=== PATIENT | female | born 1950 | race Caucasian/White ===

== ENCOUNTER → 2017-02-26 | Outpatient (CLI) | payer MEDICARE ==
--- NOTE | 2017-02-26 12:12 | REPMRS ---
Patient History The patient states she had a clinical breast exam in 01/2017. Patient is postmenopausal. Family history of ovarian cancer in mother at age 77, pancreatic cancer in maternal aunt, and pancreatic cancer in maternal grandmother. Benign excisional biopsy of the left breast, 1972. Took hormonal contraceptives for 10 years. Digital Woman Screen Mammo: February 26, 2017 - Exam #: [id number] Bilateral CC and MLO view(s) were taken. Technologist: Georgia Travis, Technologist Prior study comparison: February 20, 2016, digital woman screen mammo performed at [facility]. February 20, 2015, bilateral digital mammo screening bilat, performed at [facility]. FINDINGS: There are scattered fibroglandular densities. There has been no change in the appearance of the mammogram from the prior studies. There is a mild amount of residual fibroglandular tissue which is fairly symmetric. There is no interval development of dominant mass, architectural distortion, or clustered microcalcification suggestive of malignancy. ASSESSMENT: BI-RADS/ACR category 1 mammogram. Negative. Recommendation Routine screening mammogram in 1 year (for women over age 40). This mammogram was interpreted with the aid of an FDA-approved computer-aided dectection system. Electronically Signed By: Irving Wynn MD 02/26/17 [id number]
== END ==
LOC: M WHC 10:13
PROVIDERS: ATTEND Nurse Practitioner Women's Health
DX: Z12.31 Encounter for screening mammogram for malignant neoplasm of breast (principal)

== ENCOUNTER → 2017-12-17 | Outpatient (REF) | payer MEDICARE ==
[2017-12-17 16:04] LABS: APPEARANCE, URINE CLOUDY (CLEAR); BACTERIA, URINE AUTO NEGATIVE (NEGATIVE); BILIRUBIN, URINE AUTO NEGATIVE (NEGATIVE); BLOOD, URINE BLOOD NEGATIVE (NEGATIVE); COLOR, URINE AMBER (YELLOW); GLUCOSE, URINE (UA) AUTO NEGATIVE (NEGATIVE); KETONE, URINE AUTO NEGATIVE (NEGATIVE); LEUKOCYTE ESTERASE, URINE AUTO TRACE (NEGATIVE); MUCUS, URINE SMALL (NEGATIVE); NITRITE, URINE AUTO NEGATIVE (NEGATIVE); PROTEIN, URINE AUTO NEGATIVE (NEGATIVE); RBC, URINE AUTO 0 /HPF (0-3); SPECIFIC GRAVITY URINE AUTO 1.013 (1.002-1.035); SQUAMOUS EPITHELIAL CELL UR AU 1 /HPF (0-6); UROBILINOGEN, URINE AUTO 0.2 mg/dL (0.0-2.0); WBC, URINE AUTO 0 /HPF (0-3)
[2017-12-17 16:17] LABS: ALBUMIN 4.1 GM/DL (3.2-5.2); ALBUMIN/GLOBULIN RATIO 1.21 (1.00-1.93); ALKALINE PHOSPHATASE 74 U/L (45-117); ALT/SGPT 40 U/L (12-78); AMYLASE 38 U/L (25-115); ANION GAP 6 MEQ/L (8-16); AST/SGOT 24 U/L (7-37); BILIRUBIN,TOTAL 0.7 MG/DL (0.2-1.0); BLOOD UREA NITROGEN 16 MG/DL (7-18); CALCIUM LEVEL 9.1 MG/DL (8.8-10.2); CARBON DIOXIDE LEVEL 29 MEQ/L (21-32); CHLORIDE LEVEL 107 MEQ/L (98-107); CREATININE FOR GFR 0.73 MG/DL (0.55-1.30); GLOMERULAR FILTRATION RATE > 60.0 (>45); GLUCOSE, FASTING 87 MG/DL (70-100); LIPASE 125 U/L (73-393); POTASSIUM SERUM 4.4 MEQ/L (3.5-5.1); SODIUM LEVEL 142 MEQ/L (136-145); TOTAL PROTEIN 7.5 GM/DL (6.4-8.2)
== END ==
LOC: M SFHCPLAZ 13:44
DX: M54.6 Pain in thoracic spine (principal); R10.9 Unspecified abdominal pain
CPT/HCPCS: 82150

== ENCOUNTER → 2017-12-17 | Outpatient (CLI) | payer MEDICARE | LOC: M WUC 14:24 | DX: M54.6 Pain in thoracic spine (principal); R10.9 Unspecified abdominal pain; K21.0 Gastro-esophageal reflux disease with esophagitis; R79.89 Other specified abnormal findings of blood chemistry | CPT/HCPCS: 71048; 82150 ==

== ENCOUNTER → 2018-03-04 | Outpatient (CLI) | payer MEDICARE | LOC: M WHC 08:51 | DX: Z12.31 Encounter for screening mammogram for malignant neoplasm of breast (principal); R29.890 Loss of height; N95.1 Menopausal and female climacteric states; M85.851 Other specified disorders of bone density and structure, right thigh; M85.852 Other specified disorders of bone density and structure, left thigh | CPT/HCPCS: 77067 ==

== ENCOUNTER 2018-03-10 07:08 | Day surgery (SDC) | payer MEDICARE ==
[2018-03-10] MEDS: NS 1,000 ML IV (07:30)
[2018-03-10] MEDS ORDERED: fentaNYL 100 MCG/2 ML INJECTION (J3010) As Ordered (08:39)
[2018-03-10] MEDS ORDERED: PROPOFOL 200 MG/20 ML VIAL As Ordered ×2 (08:39→09:06)
[2018-03-10] MEDS ORDERED: LIDOCAINE 2% INJ 100 MG/5 ML SDV (FOR ANES.) As Ordered (08:39)
== END 2018-03-10 09:40 | disposition home or self-care (01) ==
LOC: M OPP 07:08
DX: Z12.11 Encounter for screening for malignant neoplasm of colon (principal); Z86.010 Personal history of colon polyps; K64.0 First degree hemorrhoids; K57.30 Diverticulosis of large intestine without perforation or abscess without bleeding; K22.70 Barrett's esophagus without dysplasia; R12 Heartburn; K22.8 Other specified diseases of esophagus; K44.9 Diaphragmatic hernia without obstruction or gangrene; K31.89 Other diseases of stomach and duodenum; E78.5 Hyperlipidemia, unspecified; K21.9 Gastro-esophageal reflux disease without esophagitis; Z88.1 Allergy status to other antibiotic agents; Z88.2 Allergy status to sulfonamides; Z79.82 Long term (current) use of aspirin; Z79.899 Other long term (current) drug therapy; Z80.41 Family history of malignant neoplasm of ovary
CPT/HCPCS: G0105

== ENCOUNTER 2018-04-09 11:20 | Emergency (ER) | payer MEDICARE ==
[2018-04-09 12:21] LABS: BASO % 0.6 % (0.0-1.0); EOS # 0.1 10^3/uL (0.0-0.50); EOS % 1.3 % (0.0-3.0); HEMATOCRIT 38.3 % (36.0-47.0); HEMOGLOBIN 13.1 g/dl (12.0-15.5); IMMATURE GRANULOCYTE % 0.3 % (0-3.0); LYMPH # 1.5 10^3/uL (1.5-4.5); LYMPH % 21.1 % (24.0-44.0); MEAN CORPUSCULAR HEMOGLOBIN 29.9 pg (27.0-33.0); MEAN CORPUSCULAR HGB CONC 34.2 g/dl (32.0-36.5); MEAN CORPUSCULAR VOLUME 87.4 fl (80.0-96.0); MONO # 0.4 10^3/uL (0.0-0.8); NEUTROPHILS % 70.7 % (36.0-66.0); PLATELET COUNT, AUTOMATED 254 10^3/uL (150-450); RED BLOOD COUNT 4.38 10^6/uL (4.00-5.40)
[2018-04-09 12:30] LABS: INR 0.89; PROTHROMBIN TIME 12.2 SECONDS (12.1-14.4)
[2018-04-09 12:31] LABS: PARTIAL THROMBOPLASTIN TIME 27.1 SECONDS (25.4-37.6)
[2018-04-09 12:47] LABS: ALBUMIN 3.7 GM/DL (3.2-5.2); ALBUMIN/GLOBULIN RATIO 0.97 (1.00-1.93); ALKALINE PHOSPHATASE 82 U/L (45-117); ALT/SGPT 45 U/L (12-78); ANION GAP 8 MEQ/L (8-16); AST/SGOT 20 U/L (7-37); BILIRUBIN,DIRECT 0.2 MG/DL (0.0-0.2); BILIRUBIN,TOTAL 0.6 MG/DL (0.2-1.0); CALCIUM LEVEL 9.1 MG/DL (8.8-10.2); CARBON DIOXIDE LEVEL 27 MEQ/L (21-32); CHLORIDE LEVEL 109 MEQ/L (98-107); CPK CREATINE PHOSPHOKINASE 48 U/L (26-192); CREATININE FOR GFR 0.73 MG/DL (0.55-1.30); GLOMERULAR FILTRATION RATE > 60.0 (>39); GLUCOSE, FASTING 103 MG/DL (70-100); LIPASE 126 U/L (73-393); POTASSIUM SERUM 3.8 MEQ/L (3.5-5.1); SODIUM LEVEL 144 MEQ/L (136-145); TOTAL PROTEIN 7.5 GM/DL (6.4-8.2); TROPONIN I < 0.02 NG/ML (< 0.10)
[2018-04-09 12:53] LABS: BLOOD UREA NITROGEN 24 MG/DL (7-18); CK-MB VALUE MASS < 1.0 NG/ML (<3.6); MB/CK RELATIVE INDEX 2.08 (< OR =4)
== END 2018-04-09 13:43 | disposition home or self-care (01) ==
LOC: M ED 11:20
DX: K21.9 Gastro-esophageal reflux disease without esophagitis (principal); R00.2 Palpitations
CPT/HCPCS: 71045

== ENCOUNTER → 2018-12-29 | Outpatient (CLI) | payer MEDICARE ==
[~2018-12-29] MED LIST: ASPI81TA85 PO; ATOR1TAB21 PO; B COTAB3 PO; CALC600T60 PO; CRAN450T4 PO; MAAL600C PO; OMEP40CA2 PO
--- NOTE | 2018-12-29 07:57 | REP ---
Abdominal right upper quadrant ultrasound for follow-up of gallbladder polyps: Comparison is the complete abdominal ultrasound dated 04/14/2018. There is a negative Craft's sign. There are multiple gallbladder wall polyps, similar to the prior study, the largest today measuring 6.6 x 5.1 x 4.9 mm. Previously the largest measures 6.3 x 5.2 x 4.5 mm. There is no gallbladder wall thickening. The gallbladder wall thickness measures up to 2.0 mm. There is no intrahepatic or extrahepatic biliary duct dilatation. The common biliary duct measures 6.8 mm in diameter. The hepatic parenchyma is echogenic compatible with hepato steatosis. No hepatic masses are identified. The visualized areas of the pancreas are unremarkable. The right kidney is normal size measuring 11.2 x 5.7 x 4.2 cm. There is no right renal hydronephrosis or calculus. There is no right renal solid or cystic mass. There is no right upper quadrant ascites. Impression: Multiple gallbladder wall polyps, similar to the prior study. Electronically Signed by Irving Gan MD 12/29/2018 07:48 A
== END ==
LOC: M RAD 06:52
PROVIDERS: ATTEND Surgery
DX: K82.8 Other specified diseases of gallbladder (principal)

== ENCOUNTER → 2020-03-08 | Outpatient (CLI) | payer MEDICARE ==
[~2020-03-08] MED LIST changes: -OMEP40CA2 PO; +OMEP40CA97 PO
--- NOTE | 2020-03-08 09:13 | REPMRS ---
Patient History The patient states she had a clinical breast exam in February 2020.Patient is postmenopausal. Family history of ovarian cancer at age 77 in mother, pancreatic cancer in maternal aunt, pancreatic cancer in maternal grandmother. Benign excisional biopsy of the left breast, 1972. Took hormonal contraceptives for 10 years. Digital Woman Screen Mammo: March 08, 2020 - Exam #: [id number] Bilateral CC and MLO view(s) were taken. Technologist: Stephanie Dodd, Technologist Prior study comparison: March 07, 2019, bilateral digital mammo screening bilat, performed at [facility]. March 04, 2018, bilateral digital woman screen mammo performed at [facility]. February 26, 2017, digital woman screen mammo performed at [facility]. FINDINGS: There are scattered fibroglandular densities. The Volpara volumetric breast density category is:B. There has been no change in the appearance of the mammogram from the prior studies. There is a mild amount of scattered fibroglandular density which is fairly symmetric.There is a stable nodular opacity in the right breast laterally consistent with a small intramammary lymph node or cyst. There is no interval development of dominant mass, architectural distortion, or grouped microcalcification suggestive of malignancy. 3-D tomosynthesis shows no additional findings. Assessment: BI-RADS/ACR category 2 mammogram. Benign Findings. Recommendation Routine screening mammogram of both breasts in 1 year (for women over age 40). This patient's Lifetime Breast Cancer Risk is estimated at 3.7 %. This mammogram was interpreted with the aid of an FDA-approved computer-aided dectection system. Electronically Signed By: Sahil Pinzon MD 03/08/20 0912
== END ==
LOC: M WHC 07:00
PROVIDERS: ATTEND Obstetrics & Gynecology
DX: Z12.31 Encounter for screening mammogram for malignant neoplasm of breast (principal)

== ENCOUNTER → 2021-02-07 | Outpatient (CLI) | payer MEDICARE ==
[~2021-02-07] MED LIST changes: -ASPI81TA85 PO; +ASPI81TA86 PO; +OMEP40CA4 PO; -OMEP40CA97 PO
--- NOTE | 2021-02-07 12:13 | REP ---
INDICATION: NEOPLASM OF UNK OF THYROID GLAND. COMPARISON: 12/06/2020. TECHNIQUE: Real-time sonographic evaluation of thyroid performed. FINDINGS: Right lobe of the thyroid measures 4.8 x 1.8 x 1.3 cm and left lobe 4.1 x 1.1 x 1.3 cm. In the upper pole of the right lobe there is a 1 cm ill-defined hypoechoic nodule. In the mid left lobe there is an isoechoic nodule 6 x 3 x 5 mm. There is a 1 mm cyst in the left lower pole. IMPRESSION: Subcentimeter solid nodule seen in each lobe of the thyroid as discussed above. The nodule in the right upper pole is somewhat ill-defined and hypoechoic. Recommend either six-month follow-up ultrasound or FNA. <Electronically signed by Irving Wynn > 02/07/21 [id number]
== END ==
LOC: M RAD 11:15
PROVIDERS: ATTEND Otolaryngology
DX: D44.0 Neoplasm of uncertain behavior of thyroid gland (principal); E04.1 Nontoxic single thyroid nodule

== ENCOUNTER → 2021-03-14 | Outpatient (CLI) | payer MEDICARE ==
--- NOTE | 2021-03-14 10:00 | REPMRS ---
Patient History The patient states she had a clinical breast exam in 02/2021. Family history of ovarian cancer at age 77 in mother, pancreatic cancer in maternal aunt, pancreatic cancer in maternal grandmother. Benign excisional biopsy of the left breast, 1971. Took hormonal contraceptives for 10 years. Patient states no breast complaints today. Patient has signed MRS History Sheet. Digital Woman Screen Mammo: March 14, 2021 - Exam #: [id number] Bilateral CC and MLO view(s) were taken. Technologist: Georgia Travis, Technologist Prior study comparison: March 08, 2020, bilateral digital woman screen mammo performed at [facility]. March 07, 2019, bilateral digital mammo screening bilat, performed at [facility]. FINDINGS: There are scattered fibroglandular densities. Screening. Digital screening (2D) mammography was performed bilaterally in the CC and MLO projections. Additionally, breast tomosynthesis (3D mammography) was performed bilaterally in the CC and MLO projections. Todays exam was compared to the prior exam/exams. By history, the patient has no complaints of a palpable breast abnormality or other significant breast complaints. The breasts are unchanged in size and shape. There are no timmy-soft tissue densities or spiculated masses. There is no internal architectural distortion. Once again, stable benign appearing calcifications are seen.There are no suspicious timmy-calcific clusters. Skin thickening or nipple retraction is not present. IMPRESSION: BI-RADS Category 2- Benign Findings. There is no evidence of malignant alteration of the breasts. Followup examination recommended in one year. The Volpara volumetric breast density category is B, there are scattered areas of fibroglandular densities. This mammogram was read with the assistance of [facility] [employer],an FDA approved computer aided detection system for mammography. The lifetime Tyrer-Cuzick score is 3.5 % Negative x-ray reports should not delay surgical consultation if a dominant or clinically suspicious mass is present. Not all breast cancers can be identified by mammography. Therefore, we recommend that you continue to perform regular breast self-examination and physical examination and then promptly contact your physician of any concerns or changes. Adenosis and dense breasts may obscure an underlying neoplasm. Assessment: BI-RADS/ACR category 2 mammogram. Benign Findings. Recommendation Routine screening mammogram of both breasts in 1 year. Electronically Signed By: Michael Elliott DO 03/14/21 1000
== END ==
LOC: M WHC 08:36
PROVIDERS: ATTEND Obstetrics & Gynecology
DX: Z12.31 Encounter for screening mammogram for malignant neoplasm of breast (principal); N64.89 Other specified disorders of breast; Z80.41 Family history of malignant neoplasm of ovary; Z80.0 Family history of malignant neoplasm of digestive organs

== ENCOUNTER → 2021-03-18 | Outpatient (CLI) | payer MEDICARE ==
[~2021-03-18] MED LIST changes: +LIDOCAINE 1% MDV 20ML VIAL As Ordered ONE; +VITAD400CA PO
[2021-03-18 14:10] VITALS: BP 143/62
--- NOTE | 2021-03-18 20:01 | REP ---
INDICATION: RT THYROID NODULE. COMPARISON: None. TECHNIQUE: The procedure was performed under the direct supervision of Dr. Wynn. Patient has a history of a 1 cm ill-defined hypoechoic nodule in the upper pole the right thyroid seen on a previous ultrasound dated 02/07/2021. The risks and benefits of the procedure were explained to the patient and informed consent was obtained. The right thyroid nodule was localized using ultrasound guidance. The skin was prepped and draped in a sterile fashion. 3 mL of 1% lidocaine was used as a local anesthetic. Using ultrasound guidance 4 fine-needle aspirations were obtained using 25 gauge needles. Estimated blood loss: Less than 1 mL The patient tolerated the procedure well and there were no immediate complications. After the appropriate amount to monitor convalescence the patient was discharged from the department. FINDINGS: None IMPRESSION: Ultrasound-guided right thyroid biopsy. <Electronically signed by Brain Neil > 03/18/21 1630 <Electronically signed by Irving Wynn > 03/18/21 195
== END ==
LOC: M IRPRO 13:05
PROVIDERS: ATTEND Otolaryngology
DX: D44.0 Neoplasm of uncertain behavior of thyroid gland (principal)

== ENCOUNTER → 2021-04-10 | Outpatient (CLI) | payer MEDICARE ==
[~2021-04-10] MED LIST changes: +EQL50TAB2 PO; -LIDOCAINE 1% MDV 20ML VIAL As Ordered ONE
== END ==
LOC: M LABSMTC 10:26
PROVIDERS: ATTEND Anesthesiology
DX: Z01.818 Encounter for other preprocedural examination (principal)

== ENCOUNTER 2021-04-15 10:52 | Day surgery (SDC) | payer MEDICARE ==
[~2021-04-15] VITALS: Ht 170.2 cm; Wt 77.0 kg
[~2021-04-15 10:52] MED LIST changes: +NS 1,000 ML IV ONE
[2021-04-15] MEDS ORDERED: propofoL 500 MG/50 ML VIAL As Ordered ONE (10:56)
[2021-04-15] MEDS ORDERED: fentaNYL 100 MCG/2 ML INJECTION (J3010) As Ordered ONE (11:52)
[2021-04-15] MEDS ORDERED: LIDOCAINE 2% 100MG/5ML SDV (FOR ANES.) As Ordered ONE (11:52)
[2021-04-15 13:00] VITALS: BP 174/81
== END 2021-04-15 13:14 | disposition home or self-care (01) ==
LOC: M OPP 10:52
PROVIDERS: ATTEND Internal Medicine Gastroenterology
DX: K22.8 Other specified diseases of esophagus (principal); K44.9 Diaphragmatic hernia without obstruction or gangrene; K22.70 Barrett's esophagus without dysplasia; R12 Heartburn; Z79.899 Other long term (current) drug therapy; Z88.1 Allergy status to other antibiotic agents; Z88.2 Allergy status to sulfonamides; Z88.8 Allergy status to other drugs, medicaments and biological substances
CPT/HCPCS: 43239; 88305; J3010

== ENCOUNTER → 2021-04-24 | Outpatient (CLI) | payer MEDICARE ==
[~2021-04-24] MED LIST changes: +LIDOCAINE 1% MDV 20ML VIAL As Ordered ONE; -NS 1,000 ML IV ONE; +SODIUM BICARBONATE 8.4% INJ 50MEQ 50 ML VIAL As Ordered ONE
[2021-04-24 14:42] VITALS: BP 154/88
--- NOTE | 2021-04-24 16:44 | REP ---
INDICATION: RT THYROID NODULE NEOPLASM UNCERTAIN BEHAVIOR. COMPARISON: None. TECHNIQUE: The procedure was performed by YONY Alex, under the direct supervision of Dr. Wynn. The risks and benefits of the procedure were explained to the patient and an informed consent was obtained both verbally and written. Directly prior to the start of the procedure a formal time-out was completed in the procedure room. The right thyroid nodule was localized using ultrasound guidance. The skin was prepped and draped in a sterile fashion. Five mL of buffered lidocaine was used as a local anesthetic. Using ultrasound guidance a 9 fine needle aspirations were obtained. Cytology was in the room and evaluated 7 fine needle aspirations. There were very few cells but the last fine-needle aspiration looked very promising. The remaining 2 specimens were sent out for AFIRMA testing. FINDINGS: The patient tolerated the procedure well and there were no immediate complications. After the appropriate amount of monitored convalescence the patient was discharged from the department. IMPRESSION: Ultrasound-guided right thyroid nodule fine needle aspiration. <Electronically signed by Regla Geronimo > 04/24/21 1637 <Electronically signed by rIving Wynn > 04/24/21 1640
== END ==
LOC: M IRPRO 13:06
PROVIDERS: ATTEND Otolaryngology
DX: D34 Benign neoplasm of thyroid gland (principal)

== ENCOUNTER → 2022-04-14 | Outpatient (CLI) | payer MEDICARE ==
[~2022-04-14] MED LIST changes: -LIDOCAINE 1% MDV 20ML VIAL As Ordered ONE; -SODIUM BICARBONATE 8.4% INJ 50MEQ 50 ML VIAL As Ordered ONE
== END ==
LOC: M WHC 10:17
PROVIDERS: ATTEND Physician Assistant
DX: E04.1 Nontoxic single thyroid nodule (principal); D44.0 Neoplasm of uncertain behavior of thyroid gland

== ENCOUNTER 2024-01-04 12:33 | Day surgery (SDC) | payer MEDICARE ==
[~2024-01-04] VITALS: Ht 170.2 cm; Wt 68.0 kg
[2024-01-04] MEDS: NS 1,000 ML IV ONE (13:35)
[2024-01-04] MEDS ORDERED: LIDOCAINE 2% 100MG/5ML SDV (FOR ANES.) As Ordered ONE (14:06)
[2024-01-04] MEDS ORDERED: propofoL 200 MG/20 ML VIAL As Ordered ONE (14:06)
[2024-01-04] MEDS ORDERED: fentaNYL 100 MCG/2 ML INJECTION As Ordered ONE (14:06)
[2024-01-04 14:48] VITALS: TEMP 96.9
[2024-01-04 15:09] VITALS: BP 132/69; O2SAT 98
== END 2024-01-04 15:19 | disposition home or self-care (01) ==
LOC: M OPP 12:33
PROVIDERS: ATTEND Internal Medicine Gastroenterology
DX: Z12.11 Encounter for screening for malignant neoplasm of colon (principal); D12.0 Benign neoplasm of cecum; K21.00 Gastro-esophageal reflux disease with esophagitis, without bleeding; K44.9 Diaphragmatic hernia without obstruction or gangrene; K64.0 First degree hemorrhoids; K57.30 Diverticulosis of large intestine without perforation or abscess without bleeding; K22.89 Other specified disease of esophagus; Z86.010 Personal history of colon polyps; Z79.899 Other long term (current) drug therapy; Z90.710 Acquired absence of both cervix and uterus; Z90.49 Acquired absence of other specified parts of digestive tract
CPT/HCPCS: 43239; 45380; 88305; J3010